=== PATIENT | female | born 2000 | race Two or more races ===

== ENCOUNTER 2021-06-04 10:10 | Emergency (ER) | payer OTHER ==
[2021-06-04 11:17] LABS: #Eosinphils 0.1 10x3/uL (0.0-0.5); #Monocytes 0.5 10x3/uL (0.0-1.1); #Neutrophils 11.3 10x3/uL (1.5-8.4); %Basophils 0.2 % (0.0-2.0); %Eosinophils 0.6 % (0.0-6.0); %Lymphocytes 13.2 % (18.0-47.0); %Monocytes 3.5 % (0.0-10.0); %Neutrophils 82.1 % (40.0-75.0); Hemoglobin 12.9 g/dL (12.0-15.5); Mean Corpuscular HGB CONC 34.3 g/dL (32.0-36.0); Mean Corpuscular Hemoglobin 27.9 pg (27.0-33.0); Mean Corpuscular Volume 81.4 fl (81.6-98.3); Platelet Count 259 10x3/uL (150-450); RBC Distribution Width 14.4 % (11.5-14.5); Red Blood Cell (RBC) Count 4.62 10x6/uL (3.90-5.03); White Blood Cell (WBC) Count 13.7 10x3/uL (3.5-10.5)
[2021-06-04 11:35] LABS: ALT (SGPT) 12 U/L (8-55); AST (SGOT) 17 U/L (5-30); Albumin 3.9 g/dL (3.5-5.0); Alkaline Phosphatase 60 U/L (40-100); Anion Gap 11 mmol/L (10-20); BUN (Urea Nitrogen) 11 mg/dL (8.4-21.0); Bilirubin, Total 0.2 mg/dL (0.2-1.2); Calc. Creatinine Clearance 0 mL/min (70-130); Calcium 9.1 mg/dL (7.8-10.44); Carbon Dioxide 22 mmol/L (22-29); Chloride 104 mmol/L (98-107); Globulin 2.8 g/dL (2.4-3.5); Glucose 77 mg/dL (70-105); Protein, Total 6.7 g/dL (6.0-8.3); Sodium 133 mmol/L (136-145)
== END 2021-06-04 12:52 | disposition home or self-care (01) ==
LOC: CSHERS 10:10
DX: R55 Syncope and collapse (principal)
CPT/HCPCS: 80053; 84484; 85025; 93005

== ENCOUNTER 2021-12-10 11:12 | Outpatient (CLI) | payer OTHER | END 2021-12-10 11:13 | disposition home or self-care (01) | LOC: CSHLAB 11:12 | PROVIDERS: ATTEND Advanced Practice Midwife | DX: Z20.822 Contact with and (suspected) exposure to COVID-19 (principal) | CPT/HCPCS: 87811 ==

== ENCOUNTER 2021-12-10 19:30 | Inpatient (IN) | payer OTHER ==
[2021-12-13] MEDS ORDERED: Diphenoxylate HCl/Atropine Tablet PO PRN (18:48)
[2021-12-13] MEDS ORDERED: Promethazine HCl 25 MG/ML VIAL IM PRN (18:48)
[2021-12-13] MEDS ORDERED: Butorphanol Tartrate 1 MG/ML VIAL SLOW IVP PRN (18:48)
[2021-12-13] MEDS ORDERED: Ibuprofen 800 MG TAB PO PRN (18:48)
[2021-12-13] MEDS ORDERED: hydrALAZINE 20 MG/ML VIAL SLOW IVP PRN (18:48)
[2021-12-13] MEDS ORDERED: Acetaminophen 500 MG TAB PO PRN (18:48)
[2021-12-13] MEDS ORDERED: HYDROcodone/Acetaminophen 5/325 mg Tablet PO PRN ×2 (18:48)
[2021-12-13] MEDS ORDERED: Carboprost 250 MCG/ML AMP IM PRN (18:48)
[2021-12-13] MEDS ORDERED: Misoprostol 200 MCG TAB PR PRN (18:48)
[2021-12-13] MEDS ORDERED: Ondansetron PF 4 MG/2 ML Vial IVP PRN (18:48)
[2021-12-13] MEDS ORDERED: Methylergonovine 0.2 MG/ML VIAL IM PRN (18:48)
[2021-12-13] MEDS ORDERED: Lidocaine 1% (PF) 30 ML VIAL SC PRN (18:48)
[2021-12-13 20:56] LABS: Mean Corpuscular HGB CONC 34.6 g/dL (32.0-36.0); Mean Corpuscular Hemoglobin 28.9 pg (27.0-33.0); Mean Corpuscular Volume 83.6 fl (81.6-98.3); Mean Platelet Volume 11.6 fl (7.4-10.4); Platelet Count 240 10x3/uL (150-450); RBC Distribution Width 12.9 % (11.5-14.5); White Blood Cell (WBC) Count 10.5 10x3/uL (3.5-10.5)
[2021-12-13 21:26] LABS: Hep B Surf Ag Non-Reactive S/CO (NonReactive); Syphilis Antibody Nonreactive (Nonreactive); Syphilis Antibody Index 0.04 S/CO (<1.00 Non-Reactive)
[2021-12-13 21:31] LABS: HBSAg Index 0.21 S/CO (0-0.99)
[2021-12-13 21:56] LABS: Fetal Membranes Rupture No Membranes Rupture (No Rupture)
[2021-12-13] MEDS: Misoprostol 100 MCG TAB PO SCH (23:15)
[2021-12-13] MEDS ORDERED: Misoprostol 100 MCG TAB ONE (23:15)
[2021-12-13 23:23] VITALS: BMI 32.8
[2021-12-13] MEDS ORDERED: NS w/ Oxytocin 30 units 500 ML IV SCH ×2 (23:30)
[2021-12-14] MEDS: Misoprostol 100 MCG TAB PO SCH ×3 (02:40→12:34)
[2021-12-14] MEDS: Lactated Ringer's 1,000 ML IV SCH (07:20)
[2021-12-14] MEDS ORDERED: Misoprostol 100 MCG TAB VAG SCH (07:45)
[2021-12-14] MEDS ORDERED: Famotidine/PF 20 mg/2ml Vial ONE (14:11)
[2021-12-14] MEDS ORDERED: CEFAZOLIN 2 GM VIAL ONE (14:12)
[2021-12-14] MEDS ORDERED: Famotidine/PF 20 mg/2ml Vial SLOW IVP PRN (14:13)
[2021-12-14] MEDS ORDERED: Bicitra 30 ML UDCUP PO PRN (14:13)
[2021-12-14] MEDS ORDERED: diphenhydrAMINE 50 MG/ML VIAL IVP PRN ×2 (14:15→16:05)
[2021-12-14] MEDS ORDERED: Ondansetron HCl/PF 4 MG/2 ML Vial IVP PRN ×2 (14:15→16:05)
[2021-12-14] MEDS ORDERED: Fentanyl 100 MCG/2 ML VIAL SLOW IVP PRN ×2 (14:15→16:05)
[2021-12-14] MEDS ORDERED: Promethazine HCl 25 MG SUPP PR PRN ×2 (14:15→16:05)
[2021-12-14] MEDS ORDERED: Communication Order-Pharmacy FS SCH ×2 (14:15→16:15)
[2021-12-14] MEDS ORDERED: Naloxone HCl 0.4 mg/ml Vial IVP PRN ×4 (14:15→16:05)
[2021-12-14] MEDS ORDERED: Moisturizing Cream (Eucerin) 113 GM JAR TOP PRN ×2 (14:15→16:05)
[2021-12-14] MEDS ORDERED: Meperidine HCl/PF 25 MG/ML VIAL SLOW IVP PRN ×2 (14:15→16:05)
[2021-12-14] MEDS ORDERED: Promethazine HCl 25 MG/ML VIAL IM PRN ×3 (14:15→18:31)
[2021-12-14] MEDS ORDERED: Ondansetron PF 4 MG/2 ML Vial IVP PRN ×3 (14:15→18:31)
[2021-12-14] MEDS ORDERED: Naloxone HCl 0.4 mg/ml Vial IV PRN ×2 (14:15→16:05)
[2021-12-14] MEDS ORDERED: Phenylephrine 40 MG/NS 250 ML 250 ML ONE (14:21)
[2021-12-14] MEDS ORDERED: Metoclopramide HCl 10 MG/2 ML VIAL ONE (14:21)
[2021-12-14] MEDS ORDERED: Dexamethasone 4 mg/ml Vial ONE (14:21)
[2021-12-14] MEDS ORDERED: Ondansetron PF 4 MG/2 ML Vial ONE (14:21)
[2021-12-14] MEDS ORDERED: Ketorolac Tromethamine 30 MG/ML VIAL ONE (14:21)
[2021-12-14] MEDS ORDERED: Morphine PF 10 MG/10 ML VIAL ONE (14:21)
[2021-12-14] MEDS ORDERED: Oxytocin 10 UNITS/ML VIAL ONE ×2 (14:22→15:18)
[2021-12-14] MEDS ORDERED: CEFAZOLIN 2 GM in Sodium Chloride 0.9% 100 ML IVPB SCH (14:30)
[2021-12-14] MEDS ORDERED: ePHEDrine Sulfate 50 MG/10 ML VIAL ONE (15:12)
[2021-12-14] MEDS ORDERED: Ketorolac Tromethamine 30 MG/ML VIAL IVP SCH (16:15)
[2021-12-14] MEDS ORDERED: Methylergonovine 0.2 MG/ML VIAL IM PRN (18:31)
[2021-12-14] MEDS ORDERED: Bisacodyl 10 MG SUPP PR PRN (18:31)
[2021-12-14] MEDS ORDERED: Misoprostol 200 MCG TAB PR PRN (18:31)
[2021-12-14] MEDS ORDERED: Lactated Ringer's 1,000 ML IV SCH (18:31)
[2021-12-14] MEDS ORDERED: Lanolin Ointment 7 GM TUBE TOP PRN (18:31)
[2021-12-14] MEDS ORDERED: Acetaminophen 325 MG TAB PO PRN (18:31)
[2021-12-14] MEDS ORDERED: Simethicone Chewable 80 MG TAB PO PRN (18:31)
[2021-12-14] MEDS ORDERED: NS w/ Oxytocin 30 units 500 ML IV SCH (18:31)
[2021-12-14] MEDS ORDERED: hydrALAZINE 20 MG/ML VIAL SLOW IVP PRN (18:31)
[2021-12-14] MEDS: Ketorolac Tromethamine 30 MG/ML VIAL IVP PRN (19:47)
[2021-12-14] MEDS ORDERED: Ketorolac Tromethamine 30 MG/ML VIAL IVP PRN (21:00)
[2021-12-14] MEDS: valACYclovir 500 MG TAB PO SCH (21:27)
[2021-12-14] MEDS: Docusate 100 MG CAP PO SCH (21:27)
[2021-12-15] MEDS: Ketorolac Tromethamine 30 MG/ML VIAL IVP PRN (02:17)
[2021-12-15 03:34] LABS: Hemoglobin 11.9 g/dL (12.0-15.5); Mean Corpuscular HGB CONC 34.2 g/dL (32.0-36.0); Mean Corpuscular Volume 84.7 fl (81.6-98.3); Mean Platelet Volume 11.6 fl (7.4-10.4); Platelet Count 198 10x3/uL (150-450); RBC Distribution Width 12.9 % (11.5-14.5); Red Blood Cell (RBC) Count 4.11 10x6/uL (3.90-5.03); White Blood Cell (WBC) Count 11.6 10x3/uL (3.5-10.5)
[2021-12-15] MEDS: Lactated Ringer's 1,000 ML IV SCH (06:22)
[2021-12-15] MEDS: Misoprostol 100 MCG TAB PO SCH (06:23)
[2021-12-15] MEDS: Docusate 100 MG CAP PO SCH ×3 (08:13→20:05)
[2021-12-15] MEDS: Prenatal Vitamin 1 TAB PO SCH (08:13)
[2021-12-15] MEDS: valACYclovir 500 MG TAB PO SCH ×2 (08:15→21:38)
[2021-12-15] MEDS: Ibuprofen 800 MG TAB PO SCH ×2 (11:25→20:03)
[2021-12-15] MEDS: HYDROcodone/Acetaminophen 5/325 mg Tablet PO PRN ×3 (11:26→23:45)
[2021-12-16] MEDS: Ibuprofen 800 MG TAB PO SCH ×3 (04:06→20:55)
[2021-12-16] MEDS: Docusate 100 MG CAP PO SCH ×3 (08:39→20:56)
[2021-12-16] MEDS: HYDROcodone/Acetaminophen 5/325 mg Tablet PO PRN ×3 (08:40→19:12)
[2021-12-16] MEDS: Prenatal Vitamin 1 TAB PO SCH (08:40)
[2021-12-16] MEDS: valACYclovir 500 MG TAB PO SCH ×2 (08:40→20:56)
[2021-12-17] MEDS: HYDROcodone/Acetaminophen 5/325 mg Tablet PO PRN ×3 (04:43→12:37)
[2021-12-17] MEDS: Ibuprofen 800 MG TAB PO SCH ×2 (04:44→12:37)
[2021-12-17 07:18] VITALS: BP 139/82; TEMP 98.4
[2021-12-17] MEDS: Docusate 100 MG CAP PO SCH (08:51)
[2021-12-17] MEDS: Prenatal Vitamin 1 TAB PO SCH (08:51)
[2021-12-17] MEDS: valACYclovir 500 MG TAB PO SCH (08:52)
== END 2021-12-17 13:20 | disposition home or self-care (01) | DRG 787 ==
LOC: CSHLD 12-13 18:55 → CSHPP 12-14 18:30
PROVIDERS: ADMIT Obstetrics & Gynecology; ATTEND Obstetrics & Gynecology
PROC: 10D00Z1 Extraction of Products of Conception, Low, Open Approach (ICD-10-PCS; principal; 2021-12-14)
PROC: 3E0P7VZ Introduction of Hormone into Female Reproductive, Via Natural or Artificial Opening (ICD-10-PCS; 2021-12-14)
DX: O34.03 Maternal care for unspecified congenital malformation of uterus, third trimester (principal); O98.32 Other infections with a predominantly sexual mode of transmission complicating childbirth; Q51.3 Bicornate uterus; Z3A.39 39 weeks gestation of pregnancy; Z37.0 Single live birth; A60.00 Herpesviral infection of urogenital system, unspecified; Z79.899 Other long term (current) drug therapy; Z90.49 Acquired absence of other specified parts of digestive tract
CPT/HCPCS: 36415; 51702; 84112; 85027; 86780; 86850; 86900; 86901; 87340; J0690; J1100; J1200; J1885; J2274; J2405; J2590; J2765; S0028

== ENCOUNTER 2022-03-11 07:56 | Emergency (ER) | payer OTHER | END 2022-03-11 09:10 | disposition home or self-care (01) | LOC: CSHERS 07:56 | DX: J11.1 Influenza due to unidentified influenza virus with other respiratory manifestations (principal); Z20.822 Contact with and (suspected) exposure to COVID-19 | CPT/HCPCS: 87804; 99284; U0003; U0005 ==

== ENCOUNTER 2022-11-12 21:33 | Emergency (ER) | payer OTHER ==
[2022-11-12] MEDS ORDERED: cefTRIAXone (ROCEPHIN) 500 MG VIAL ONE (22:05)
[2022-11-12] MEDS ORDERED: Sterile Water 10 ML ONE (22:05)
[2022-11-12 22:11] LABS: Bilirubin Neg (Negative); Blood, Urine Negative (Negative); Clarity Slightly Cloudy (Clear); Glucose, Urine (Dipstick) Normal (Negative); Ketone, Urine Negative (Negative); Leukocyte 500 (Negative); Nitrite Positive (Negative); Protein, Urine (Dipstick) 30 mg/dl (Neg-Trace); Specific Gravity, Urine 1.025 (1.005-1.030); Urobilinogen Normal mg/dL (Less than 2)
[2022-11-12 22:20] LABS: Pregnancy Test - Urine (BHCG) Negative (Negative); Pregu Control Background? CLEAR/WHITE (CLR/WHITE); Pregu Control Bar Appear? YES (CONTROL BAR); Specific Gravity 1.025 (1.002-1.036)
[2022-11-12 22:40] LABS: Bacteria/HPF 4+ HPF (None Seen); CAUTI Indications for Culture Dysuria,urgency,freq; RBC/HPF None Seen HPF (0-3); Squamous Epithelial 0-3 HPF (0-3); WBC/HPF Greater than 50 HPF (0-3)
[2022-11-12 22:44] LABS: Urine Culture Reflex Yes Yes
[2022-11-13 15:33] LABS: Chlamydia by PCR, Vaginal Swab Not Detected (NotDetected); GC by PCR, Vaginal Swab Not Detected (NotDetected); Tric.vaginalis PCR,Vaginal Sw Not Detected (NotDetected)
== END 2022-11-12 22:49 | disposition home or self-care (01) ==
LOC: CSHERS 21:33
DX: N39.0 Urinary tract infection, site not specified (principal)
CPT/HCPCS: 81001; 81025; 87077; 87086; 87186; 87480; 87491; 87510; 87591; 87660; 87661; 96372; 99283; J0696

== ENCOUNTER 2023-03-06 16:55 | Emergency (ER) | payer MEDICAID, OTHER ==
[2023-03-06 17:25] LABS: Bilirubin Neg (Negative); Blood, Urine Negative (Negative); Glucose, Urine (Dipstick) Normal (Negative); Ketone, Urine Negative (Negative); Leukocyte Negative (Negative); Nitrite Negative (Negative); Protein, Urine (Dipstick) 15 mg/dl (Neg-Trace); Urobilinogen Normal mg/dL (Less than 2)
[2023-03-06 17:46] LABS: Clarity Clear (Clear)
[2023-03-06 17:59] LABS: #Eosinphils 0.2 10x3/uL (0.0-0.5); #Monocytes 0.5 10x3/uL (0.0-1.1); #Neutrophils 6.6 10x3/uL (1.5-8.4); %Basophils 0.1 % (0.0-2.0); %Eosinophils 1.9 % (0.0-6.0); %Lymphocytes 28.3 % (18.0-47.0); %Monocytes 4.7 % (0.0-10.0); %Neutrophils 64.7 % (40.0-75.0); Mean Corpuscular HGB CONC 34.2 g/dL (32.0-36.0); Mean Corpuscular Hemoglobin 28.4 pg (27.0-33.0); Mean Corpuscular Volume 83.2 fl (81.6-98.3); Mean Platelet Volume 10.9 fl (7.4-10.4); Platelet Count 313 10x3/uL (150-450); RBC Distribution Width 12.9 % (11.5-14.5); Red Blood Cell (RBC) Count 4.57 10x6/uL (3.90-5.03); White Blood Cell (WBC) Count 10.1 10x3/uL (3.5-10.5)
[2023-03-06 18:12] LABS: Bacteria/HPF 3+ HPF (None Seen); CAUTI Indications for Culture Pregnancy; RBC/HPF 0-3 HPF (0-3)
[2023-03-06 18:13] LABS: Mucous/LPF 1+ LPF (<2+)
[2023-03-06 18:14] LABS: Urine Culture Reflex Yes Yes
[2023-03-06 18:19] LABS: ALT (SGPT) 38 U/L (8-55); AST (SGOT) 32 U/L (5-34); Alkaline Phosphatase 86 U/L (40-110); Anion Gap 14 mmol/L (10-20); BUN (Urea Nitrogen) 8 mg/dL (7.0-18.7); Bilirubin, Total 0.2 mg/dL (0.2-1.2); Calc. Creatinine Clearance 0 mL/min (70-130); Calcium 9.2 mg/dL (7.8-10.44); Carbon Dioxide 20 mmol/L (22-29); Chloride 105 mmol/L (98-107); Estimated GFR 128; Globulin 3.2 g/dL (2.4-3.5); Glucose 91 mg/dL (70-105); Potassium 3.7 mmol/L (3.5-5.1); Protein, Total 7.2 g/dL (6.0-8.3); Sodium 135 mmol/L (136-145)
== END 2023-03-06 19:13 | disposition home or self-care (01) ==
LOC: CSHERS 16:55
DX: O20.0 Threatened abortion (principal); Z3A.10 10 weeks gestation of pregnancy
CPT/HCPCS: 36415; 76815; 80053; 81001; 84702; 85025; 86900; 86901; 87086

== ENCOUNTER 2023-03-12 17:00 | Emergency (ER) | payer MEDICAID, SELFPAY ==
[2023-03-12 18:05] LABS: #Eosinphils 0.1 10x3/uL (0.0-0.5); #Monocytes 0.6 10x3/uL (0.0-1.1); #Neutrophils 8.9 10x3/uL (1.5-8.4); %Basophils 0.2 % (0.0-2.0); %Eosinophils 1.1 % (0.0-6.0); %Lymphocytes 23.4 % (18.0-47.0); %Monocytes 4.7 % (0.0-10.0); %Neutrophils 70.3 % (40.0-75.0); Hematocrit 39.9 % (34.9-44.5); Hemoglobin 13.4 g/dL (12.0-15.5); Mean Corpuscular HGB CONC 33.6 g/dL (32.0-36.0); Mean Corpuscular Hemoglobin 28.3 pg (27.0-33.0); Mean Corpuscular Volume 84.2 fl (81.6-98.3); Mean Platelet Volume 10.8 fl (7.4-10.4); Platelet Count 356 10x3/uL (150-450); RBC Distribution Width 13.1 % (11.5-14.5); Red Blood Cell (RBC) Count 4.74 10x6/uL (3.90-5.03); White Blood Cell (WBC) Count 12.7 10x3/uL (3.5-10.5)
== END 2023-03-12 18:41 | disposition home or self-care (01) ==
LOC: CSHERS 17:00
DX: O03.4 Incomplete spontaneous abortion without complication (principal)
CPT/HCPCS: 84702; 85025; 99284

== ENCOUNTER 2023-10-18 16:30 | Emergency (ER) | payer SELFPAY ==
[2023-10-18 17:12] LABS: Bilirubin Neg (Negative); Blood, Urine Negative (Negative); Clarity Clear (Clear); Glucose, Urine (Dipstick) Normal (Negative); Ketone, Urine Negative (Negative); Leukocyte Negative (Negative); Nitrite Positive (Negative); Protein, Urine (Dipstick) 15 mg/dl (Neg-Trace); Specific Gravity, Urine 1.025 (1.005-1.030)
[2023-10-18 17:15] LABS: Pregnancy Test - Urine (BHCG) Negative (Negative); Pregu Control Background? CLEAR/WHITE (CLR/WHITE); Pregu Control Bar Appear? YES (CONTROL BAR); Specific Gravity 1.025 (1.002-1.036)
[2023-10-18 17:53] LABS: RBC/HPF None Seen HPF (0-3)
[2023-10-18 17:54] LABS: Bacteria/HPF 4+ HPF (None Seen); CAUTI Indications for Culture Pregnancy; WBC/HPF 0-3 HPF (0-3)
[2023-10-18 17:55] LABS: Urine Culture Reflex Yes Yes
== END 2023-10-18 18:07 | disposition home or self-care (01) ==
LOC: CSHERS 16:30
DX: N39.0 Urinary tract infection, site not specified (principal)
CPT/HCPCS: 81001; 81025; 87077; 87086; 99283

== ENCOUNTER 2025-03-09 11:49 | Day surgery (SDC) | payer MEDICAID ==
[2025-03-09 12:16] VITALS: BMI 37.9
[2025-03-09] MEDS ORDERED: hydrALAZINE 20 MG/ML VIAL SLOW IVP PRN (12:24)
[2025-03-09 13:17] LABS: #Basophils Less than 0.03 10x3/uL (0.0-0.2); #Eosinophils 0.14 10x3/uL (0.0-0.5); #Monocytes 0.74 10x3/uL (0.0-1.1); #Neutrophils 7.51 10x3/uL (1.5-8.4); %Basophils 0.1 % (0.0-2.0); %Eosinophils 1.4 % (0.0-6.0); %Lymphocytes 17.5 % (18.0-47.0); %Monocytes 7.2 % (0.0-10.0); %Neutrophils 73.3 % (40.0-75.0); Hematocrit 32.0 % (34.9-44.5); Hemoglobin 10.8 g/dL (12.0-15.5); Mean Corpuscular Hemoglobin 27.1 pg (27.0-33.0); Mean Corpuscular Volume 80.2 fL (81.6-98.3); Platelet Count 355 10x3/uL (150-450); Red Blood Cell (RBC) Count 3.99 10x6/uL (3.90-5.03); White Blood Cell (WBC) Count 10.24 10x3/uL (3.5-10.5)
[2025-03-09 13:30] LABS: ALT (SGPT) 45 U/L (Less than 34); AST (SGOT) 57 U/L (11-34); Albumin 2.7 g/dL (3.1-4.5); Alkaline Phosphatase 147 U/L (40-110); Anion Gap 14 mmol/L (10-20); BUN (Urea Nitrogen) 8 mg/dL (7.0-18.7); Bilirubin, Total 0.2 mg/dL (0.3-1.2); Calc. Creatinine Clearance 245 mL/min (70-130); Calcium 9.2 mg/dL (7.8-10.44); Carbon Dioxide 21 mmol/L (22-29); Chloride 107 mmol/L (98-107); Globulin 4.0 g/dL (2.4-3.5); Glucose 85 mg/dL (70-105); Potassium 3.8 mmol/L (3.5-5.1); Sodium 138 mmol/L (136-145)
== END 2025-03-09 14:20 | disposition home or self-care (01) ==
LOC: CSHLD/OP 11:49
PROVIDERS: ATTEND Obstetrics & Gynecology
DX: O36.8130 Decreased fetal movements, third trimester, not applicable or unspecified (principal); O26.893 Other specified pregnancy related conditions, third trimester; L29.9 Pruritus, unspecified; Z3A.36 36 weeks gestation of pregnancy
CPT/HCPCS: 76819; 80053; 82239; 85025; 99283

== ENCOUNTER 2025-03-25 19:01 | Emergency (ER) | payer MEDICAID | END 2025-03-25 20:12 | disposition home or self-care (01) | LOC: CSHERS 19:01 | DX: O99.893 Other specified diseases and conditions complicating puerperium (principal); R60.0 Localized edema; H53.8 Other visual disturbances; R03.0 Elevated blood-pressure reading, without diagnosis of hypertension | CPT/HCPCS: 93005; 99283 ==